=== PATIENT | female | born 1935 | race Caucasian/White ===

== ENCOUNTER 2017-09-18 12:04 | Inpatient (IN) | payer MEDICARE, OTHER ==
[~2017-09-18] VITALS: Ht 160 cm; Wt 75.7 kg
[2017-09-18 12:09] VITALS: BP 157/59
--- NOTE | 2017-09-18 12:24 | NUR ---
PT TRANSFERRED TO ER BED 4 VIA WHEELCHAIR ASSISTANCE.
--- NOTE | 2017-09-18 12:29 | NUR ---
PATIENT PRESENTS TO ED WITH 81/F PRESENT TO ER C/O DIZZINESS x TODAY @ 0700. HX: DM , RT MASTECTOMY AND HTN; DENIES N/V/D; SKIN IS PINK/WARM/DRY; AAOX4 WITH EVEN AND STEADY GAIT; LUNGS CLEAR BL; HR EVEN AND REGULAR; PT DENIES ANY FEVER, CP, SOB, OR COUGH AT THIS TIME; PATIENT STATES PAIN OF 0/10 AT THIS TIME; VSS; PATIENT POSITIONED FOR COMFORT; HOB ELEVATED; BEDRAILS UP X2; BED DOWN. ER MD MADE AWARE OF PT STATUS.
[2017-09-18] MEDS ORDERED: NACL 0.9% 1,000 ML IV ONE ×2 (12:35→14:25)
[2017-09-18 13:14] LABS: BASOPHILS % (AUTO) 0.4 % (0.0-2.0); EOSINOPHILS # (AUTO) 0.6 K/uL (0-0.4); HEMOGLOBIN 13.4 g/dL (12.0-16.0); LYMPHOCYTES # (AUTO) 1.2 K/uL (2.5-16.5); LYMPHOCYTES % (AUTO) 15.6 % (20.5-51.1); MEAN CORPUSCULAR HEMOGLOBIN 29 pg (27-31); MEAN CORPUSCULAR HGB CONC 33 g/dL (33-37); MEAN CORPUSCULAR VOLUME 90.3 fL (80-94); MONOCYTES # (AUTO) 0.6 K/uL (0.8-1.0); MONOCYTES % (AUTO) 7.8 % (1.7-9.3); NEUTROPHILS # (AUTO) 5.1 K/uL (1.8-7.7); NEUTROPHILS % (AUTO) 68.2 % (42.2-75.2); PLATELET COUNT (AUTO) 197 K/uL (140-450); RED BLOOD CELL COUNT(AUTO) 4.54 MIL/uL (4.20-5.40); RED CELL DISTRIBUTION WIDTH 13.2 % (11.6-13.7); WHITE BLOOD COUNT (AUTO) 7.5 K/uL (4.8-10.8)
[2017-09-18 13:43] LABS: ALBUMIN 3.2 g/dL (3.4-5.0); ANION GAP 9.3 (8-16); ASPARTATE AMINOTRANSFERASE 14 U/L (15-37); CARBON DIOXIDE 29.9 mmol/L (21-32); CHLORIDE 97 mmol/L (98-107); CREATININE 1.6 mg/dL (0.6-1.3); SODIUM SERUM 131 mmol/L (136-145); TOTAL BILIRUBIN 0.4 mg/dL (0.0-1.0); UREA NITROGEN, BLOOD 34 mg/dL (7-18)
[2017-09-18 13:55] LABS: GLUCOSE 473 mg/dL (74-106); POTASSIUM 5.2 mmol/L (3.5-5.1)
[2017-09-18 14:25] LABS: APPEARANCE,URINE CLEAR (CLEAR); BILIRUBIN,URINE NEGATIVE (NEGATIVE); BLOOD, URINE 1+ (NEGATIVE); LEUKOCYTE ESTERASE ,URINE NEGATIVE (NEGATIVE); NITRITE, URINE NEGATIVE (NEGATIVE); UGLUCOSE 3+ (NEGATIVE)
[2017-09-18] MEDS ORDERED: INSULIN REGULAR, HUMAN 100 UNIT/ML VIAL SUBQ ONE (14:25)
[2017-09-18 14:27] LABS: COLOR,URINE STRAW (YELLOW)
[2017-09-18 14:40] LABS: RBC,URINE 0-5 (RARE) /HPF (0-5); WBC,URINE NONE SEEN /HPF (0-5)
[2017-09-18] MEDS ORDERED: INSU100S22 SUBQ (14:51)
[2017-09-18] MEDS ORDERED: ARI1 PO (14:53)
[2017-09-18] MEDS ORDERED: ROSU5TAB PO (14:54)
[2017-09-18] MEDS ORDERED: LOSA25TA22 PO (14:58)
[2017-09-18] MEDS ORDERED: FORM1 IH (14:59)
--- NOTE | 2017-09-18 15:05 | NUR ---
Pt c/o head ache 10/23, Dr Kern notified
[2017-09-18] MEDS ORDERED: ACETAMINOPHEN 325 MG TAB PO ONE (15:15)
--- NOTE | 2017-09-18 15:20 | NUR ---
Pt placed on N/C at 2lpm d/t paO2 63, per
[2017-09-18] MEDS ORDERED: NACL 0.9% 1,000 ML IV SCH (15:44)
[2017-09-18] MEDS ORDERED: ONDANSETRON 4 MG/2 ML VIAL IVP PRN (15:45)
[2017-09-18] MEDS ORDERED: ACETAMINOPHEN 325 MG TAB PO PRN (15:45)
--- NOTE | 2017-09-18 16:11 | NUR ---
PT AWAITING AVAILABLE ROOM/RN FOR ADMISSION, PT/GRAND DAUGHTER MADE AWARE/UPDATED.
[2017-09-18 17:00] VITALS: BP 206/84
--- NOTE | 2017-09-18 17:00 | NUR ---
RECEIVED REPORT FROM ER NURSE AT BEDSIDE. PT DX UNCONTROLLED DM. CHIEF COMPLAIN IS DIZZINESS. DR DICKENS AT THE BEDSIDE. VS NOTES BP 206/84, O2 99% VIA NC @ 2LPM, RR 20, T-97.5, HR 75. NO SIGN OF DISTRESS. GRANDDAUGHTER AT THE BEDSIDE, PT BHUTANESE SPEAKING ONLY. GRANDDAUGHTER HELPED TO TRANSLATE TO PT. ADMINISTERED CLONIDINE TO PT. WILL REASSESS THE BP. ALL SAFETY MEASURE IN PLACE. CALL LIGHT WITHIN REACH. WILL CONTINUE TO MONITOR PT.
--- NOTE | 2017-09-18 17:05 | NUR ---
Patient will be admitted to care of Dr Coelho. Admited to tele room 105b. Belongings list completed. Report given to RUBENS Trammell.
--- NOTE | 2017-09-18 17:15 | NUR ---
DR DICKENS AT THE BEDSIDE TAKING HX FROM THE GRANDDAUGHTER. INFORMED THAT PHARMACY WANTED THE RATE FOR NORMAL SALINE FLUID. HE GAVE THE ORDER TO RUN @ 75 ML/HR. VERBALISED BACK TO DR DICKENS.
[2017-09-18] MEDS: cloNIDine 0.1 MG TAB PO PRN ×2 (17:46→20:30)
--- NOTE | 2017-09-18 18:00 | NUR ---
PT BP NOTED 169/48. CLONIDINE GIVEN EARLIER FOR BP 206/84. WILL CONTINUE TO MONITOR BP.
[2017-09-18] MEDS: IPRATROPIUM 0.02% 0.5 MG/2.5 ML NEBU INH SCH (19:00)
[2017-09-18] MEDS: ALBUTEROL 0.083% 2.5 MG/3 ML NEBU INH SCH (19:00)
--- NOTE | 2017-09-18 19:29 | NUR ---
ENDORSED PT TO PM NURSE. NO BP OR BLOOD WORK FROM PT RT HAND. NURSE NOTIFIED. FAMILY AT THE BEDSIDE. PT STABLE .
--- NOTE | 2017-09-18 19:30 | NUR ---
RECEIVED REPORT FROM [facility] NURSE AT BEDSIDE FOR CONTINUITY OF CARE. PT AAOX4 BANGLADESHI SPEAKING ONLY. RIGHT ARM RESTRICTION (NO BP OR BLOOD DRAW TO RIGHT ARM). HX: R MASTECTOMY. IV LAC 20G. SKIN INTACT NO SOB NO S/S OF DISTRESS NC O2 2L. BED LOWERED CALL LIGHT WITHIN REACH WILL CONTINUE TO MONITOR.
[2017-09-18 20:00] VITALS: BP 144/53
[2017-09-18] MEDS ORDERED: INSULIN LANTUS 100 UNITS/ML 10 ML VIAL SUBQ SCH (21:00)
--- NOTE | 2017-09-18 21:30 | NUR ---
GAVE PT LANTUS INSULIN BUT GOT ORDER CHANGED D/T BG 130. WILL CONTINUE TO MONITOR. ALSO STARTED IV FLUIDS.
[2017-09-18] MEDS: NACL 0.9% 1,000 ML IV SCH (21:48)
[2017-09-18] MEDS: BLOOD GLUCOSE MONITORING 1 DEV DEV FS SCH ×2 (21:48→21:51)
[2017-09-18] MEDS: INSULIN LANTUS 100 UNITS/ML 10 ML VIAL SUBQ SCH (21:51)
[2017-09-19] VITALS: BP 158/57
[2017-09-19] MEDS: ALBUTEROL 0.083% 2.5 MG/3 ML NEBU INH SCH ×2 (01:00→07:14)
[2017-09-19] MEDS: IPRATROPIUM 0.02% 0.5 MG/2.5 ML NEBU INH SCH ×4 (01:00→20:39)
--- NOTE | 2017-09-19 02:12 | NUR ---
PT SLEEPING. NO SOB, NO S/S OF DISTRESS WILL CONTINUE TO MONITOR.
[2017-09-19 04:00] VITALS: BP 197/79
[2017-09-19] MEDS: cloNIDine 0.1 MG TAB PO PRN (04:25)
--- NOTE | 2017-09-19 04:27 | NUR ---
GAVE CLONIDINE FOR HIGH BP 197/70 AND HR 67. WILL FOLLOW UP ON BP.
--- NOTE | 2017-09-19 05:30 | NUR ---
BLOOD GLUCOSE LOW 42. GAVE 50ML DEXTROSE IV PUSH. WILL REASSESS BS.
--- NOTE | 2017-09-19 05:55 | NUR ---
HYDRALAZINE REASSESS 138/48. HR 69
[2017-09-19] MEDS: DEXTROSE 50% 50 ML SYR IVP PRN (05:59)
--- NOTE | 2017-09-19 06:50 | NUR ---
BLOOD GLUCOSE AFTER 50ML DEXTROSE IS 133BG. WILL CONTINUE TO MONITOR.
[2017-09-19 07:13] LABS: BASOPHILS % (AUTO) 0.3 % (0.0-2.0); EOSINOPHILS # (AUTO) 0.5 K/uL (0-0.4); EOSINOPHILS % (AUTO) 6.8 % (0.0-4.0); HEMOGLOBIN 13.2 g/dL (12.0-16.0); LYMPHOCYTES % (AUTO) 24.8 % (20.5-51.1); MEAN CORPUSCULAR HEMOGLOBIN 30 pg (27-31); MEAN CORPUSCULAR HGB CONC 33 g/dL (33-37); MEAN CORPUSCULAR VOLUME 90.5 fL (80-94); MONOCYTES # (AUTO) 0.7 K/uL (0.8-1.0); MONOCYTES % (AUTO) 9.1 % (1.7-9.3); NEUTROPHILS # (AUTO) 4.7 K/uL (1.8-7.7); PLATELET COUNT (AUTO) 195 K/uL (140-450); RED BLOOD CELL COUNT(AUTO) 4.42 MIL/uL (4.20-5.40); RED CELL DISTRIBUTION WIDTH 13.2 % (11.6-13.7)
--- NOTE | 2017-09-19 07:30 | NUR ---
ENDORSED REPORT TO DAYSHIFT NURSE AT BEDSIDE FOR CONTINUITY OF CARE.
--- NOTE | 2017-09-19 07:37 | NUR ---
LAB CALLED REGARDING BLOOD GLUCOSE 37 TAKEN AT 0519 ON 09/19/17. CHARGE NURSE NOTIFIED AND PAGED DR. DICKENS.
[2017-09-19 07:38] LABS: ANION GAP 10.9 (8-16); ASPARTATE AMINOTRANSFERASE 19 U/L (15-37); CARBON DIOXIDE 28.2 mmol/L (21-32); CHLORIDE 108 mmol/L (98-107); CREATININE 1.4 mg/dL (0.6-1.3); MAGNESIUM 1.9 mg/dL (1.8-2.4); POTASSIUM 4.1 mmol/L (3.5-5.1); SODIUM SERUM 143 mmol/L (136-145); TOTAL BILIRUBIN 0.3 mg/dL (0.0-1.0); UREA NITROGEN, BLOOD 30 mg/dL (7-18)
[2017-09-19 07:39] LABS: GLUCOSE 36 mg/dL (74-106)
--- NOTE | 2017-09-19 07:40 | NUR ---
CHECKED BS OF PT. BS NOTED 116. CHARGE NURSE NOTIFIED, WAITING FOR CALL FROM DR DICKENS.
[2017-09-19] MEDS: BLOOD GLUCOSE MONITORING 1 DEV DEV FS SCH ×4 (07:42→21:00)
[2017-09-19 08:00] VITALS: BP 207/75
--- NOTE | 2017-09-19 08:28 | NUR ---
DR. CASILLAS CALLED BACK. UPDATED ON PT BS LEVEL . ORDERED TO HOLD LANTUS. PT BP 214/91, HR 74. DR NOTIFIED. OKAY TO MEDICATE WITH BP HYDRALIZINE. CLONIDINE GIVEN AT 0425.
[2017-09-19] MEDS: METOPROLOL 25 MG TAB PO SCH ×2 (08:44→20:36)
[2017-09-19] MEDS: hydrALAZINE 10 MG TAB PO SCH ×3 (08:44→17:28)
[2017-09-19] MEDS: ANASTROZOLE 1 MG TAB PO SCH (08:47)
[2017-09-19] MEDS: ENOXAPARIN 30 MG/0.3 ML SYR SUBQ SCH (08:47)
[2017-09-19] MEDS: INSULIN LANTUS 100 UNITS/ML 10 ML VIAL SUBQ SCH ×2 (09:00→21:00)
[2017-09-19] MEDS ORDERED: ENOXAPARIN 40 MG/0.4 ML SYR SUBQ SCH (09:00)
--- NOTE | 2017-09-19 09:00 | NUR ---
PT LANTUS PUT ON HOLD. BS 116 . LAB CALLED IN MORNING REGARDING CRITICAL LAB OF [address] DICKENS NOTIFIED AND HANSA TO HOLD LANTUS AT THIS TIME. WILL CONTINUE TO MONITOR PT.
--- NOTE | 2017-09-19 09:51 | NUR ---
PATIENT HAS BEEN SCREENED AND CATEGORIZED HIGH NUTRITION RISK. PATIENT WILL BE SEEN WITHIN 1-2 DAYS OF ADMISSION. 09/19/17-09/20/[address]
[2017-09-19] MEDS ORDERED: amLODIPine 5 MG TAB PO SCH (10:10)
[2017-09-19] MEDS: NACL 0.9% 1,000 ML IV SCH (10:15)
--- NOTE | 2017-09-19 10:26 | NUR ---
ADMINISTERED AMLODIPINE ORDERED TO PT. BP 20/97, HR 74. NO SIGN OF DISTRESS SEEN IN PT. STUDENT NURSE AT THE BEDSIDE, HELPS TO COMMUNICATE WITH PT. INSTRUCTED AND DEMONSTRATED TO USE CALL LIGHT FOR HELP. PT VERBALIZED UNDERSTANDING. BED AT LOWER POSITION, PT ON YELLOW GOWN, YELLOW WRIST BAND. BED ALARM ON. WILL CONTINUE TO MONITOR PT.
--- NOTE | 2017-09-19 10:45 | NUR ---
DAUGHTER AND GRAND DAUGHTER AT BEDSIDE. ASSISTING PT WITH HER CARE. DAUGHTER ASKED TO TAKE OFF NC FROM PT. LOWERED THE BED. PT TO USE RESTROOM.
[2017-09-19 12:00] VITALS: BP 143/52
[2017-09-19] MEDS: INSULIN LISPRO SLIDING SCALE 100 UNITS/ML VIAL SUBQ PRN ×2 (12:23→17:33)
--- NOTE | 2017-09-19 13:48 | NUR ---
ADMINISTERED HYDRALAZINE MEDS. BP 157/49, HR 67. PT DAUGHTER AT BEDSIDE. EXPLAINED THAT PT BP ELEVATES VERY HIGH, MEDS WILL HELP TO CONTROL THE BP IN NORMAL RANGE. STUDENT NURSE TRANSLATED THE COMMUNICATION. PT FAMILY VERBALIZED UNDERSTANDING. NO SIGN OF DISTRESS. WILL CONTINUE TO MONITOR PT.
--- NOTE | 2017-09-19 15:30 | NUR ---
09/19/17 RD INITIAL ASSESSMENT COMPLETED PLEASE REFER TO NUTRITION ASSESSMENT UNDER CARE ACTIVITY FOR ESTIMATED NUTRITIONAL NEEDS. RD RECOMMENDATIONS: 1. CONTINUE CCHO 60 GM DIET TOLERATED. 2. RD PROVIDED DM DIET EDUCATION HANDOUTS IN [place]. 3. RD WILL F/U 7 DAYS; LOW RISK. MARISSA ORR RD
[2017-09-19 16:30] VITALS: BP 144/63
--- NOTE | 2017-09-19 19:25 | NUR ---
ENDORSED PT TO PM NURSE. PT STABLE , MOM AT BEDSIDE. Addendum: 09/19/17 at 1939 by Jp Weaver RN DAUGHTER AT THE BEDSIDE.
--- NOTE | 2017-09-19 19:26 | NUR ---
RECEIVED REPORT FROM DAYSHIFT NURSE AT BEDSIDE FOR CONTINUITY OF CARE PT AAOX4 CZECH SPEAKING ONLY. IV NOTED LAC 20G IV NS 75ML. PT NEED ASSISTANCE GOING TO RESTROOM. GAIT IS WEAK. NO SOB NO S/S OF DISTRESS. WILL CONTINUE TO MONITOR.
[2017-09-19] MEDS: LOSARTAN 50 MG TAB PO SCH (20:35)
[2017-09-19] MEDS: ALBUTEROL 0.083% 2.5 MG/3 ML NEBU INH PRN (20:39)
[2017-09-19] MEDS ORDERED: LOSARTAN 50 MG TAB PO SCH (21:00)
--- NOTE | 2017-09-19 21:00 | NUR ---
BG 117. HELD LANTUS 22U. TO PREVENT HYPOGLYCEMIA. REASON (PREVIOUS NIGHT BG WAS 130'S GAVE 22U LANTUS AND BG AT AM 0530 WAS 42.)
[2017-09-19 22:37] VITALS: BP 161/50
[2017-09-20] VITALS: BP 141/83
[2017-09-20] MEDS: NACL 0.9% 1,000 ML IV SCH ×2 (00:33→10:30)
[2017-09-20] MEDS: IPRATROPIUM 0.02% 0.5 MG/2.5 ML NEBU INH SCH ×4 (01:00→19:00)
[2017-09-20 04:00] VITALS: BP 193/80
--- NOTE | 2017-09-20 04:30 | NUR ---
PT BP WAS ELEVATED TO 193/80. WILL GIVE PRN CATAPRES TO LOWER BP. REASSESS 1 HR AFTER ADMINISTRATION OF MEDICATION. WILL CONTINUE TO MONITOR.
--- NOTE | 2017-09-20 04:45 | NUR ---
BLOOD GLUCOSE CRITICALLY LOW AT 46. GAVE PT 50ML OF DEXTROSE. WILL REASSESS IN 1 HR. WILL CONTINUE TO MONITOR.
[2017-09-20] MEDS: DEXTROSE 50% 50 ML SYR IVP PRN (05:09)
[2017-09-20] MEDS: cloNIDine 0.1 MG TAB PO PRN (05:09)
--- NOTE | 2017-09-20 06:30 | NUR ---
PT BG IS NOW 119. WILL CONTINUE TO MONITOR.
--- NOTE | 2017-09-20 06:40 | NUR ---
BP NOW 149/61 HR 59. AFTER ADMIN CATAPRES. WILL CONTINUE TO MONITOR.
[2017-09-20] MEDS: BLOOD GLUCOSE MONITORING 1 DEV DEV FS SCH ×4 (06:41→21:11)
[2017-09-20 07:02] LABS: BASOPHILS % (AUTO) 0.3 % (0.0-2.0); EOSINOPHILS # (AUTO) 0.5 K/uL (0-0.4); EOSINOPHILS % (AUTO) 7.1 % (0.0-4.0); HEMATOCRIT 40.2 % (36-48); HEMOGLOBIN 13.1 g/dL (12.0-16.0); MEAN CORPUSCULAR HEMOGLOBIN 30 pg (27-31); MEAN CORPUSCULAR HGB CONC 33 g/dL (33-37); MEAN CORPUSCULAR VOLUME 90.7 fL (80-94); MONOCYTES # (AUTO) 0.6 K/uL (0.8-1.0); MONOCYTES % (AUTO) 7.8 % (1.7-9.3); NEUTROPHILS % (AUTO) 70.8 % (42.2-75.2); PLATELET COUNT (AUTO) 183 K/uL (140-450); RED BLOOD CELL COUNT(AUTO) 4.44 MIL/uL (4.20-5.40); RED CELL DISTRIBUTION WIDTH 13.1 % (11.6-13.7); WHITE BLOOD COUNT (AUTO) 7.1 K/uL (4.8-10.8)
[2017-09-20 07:10] LABS: ANION GAP 9.9 (8-16); CARBON DIOXIDE 27.1 mmol/L (21-32); CHLORIDE 108 mmol/L (98-107); CREATININE 1.4 mg/dL (0.6-1.3); GLUCOSE 142 mg/dL (74-106); SODIUM SERUM 141 mmol/L (136-145); UREA NITROGEN, BLOOD 27 mg/dL (7-18)
--- NOTE | 2017-09-20 07:31 | NUR ---
ENDORSED REPORT TO DAYSHIFT NURSE AT BEDSIDE FOR CONTINUITY OF CARE.
--- NOTE | 2017-09-20 07:35 | NUR ---
RECEIVED REPORT FROM DOG HAIR CLIPPER RN. PATIENT IS RESTING IN BED, AROUSABLE BY VOICE. DENIES PAIN AND DIZZINESS. HEART RHYTHM IS REGULAR. LUNGS CTA IN ALL [place]. BOWEL SOUNDS PRESENT IN ALL QUADRANTS. IV SITE PATENT AND ASYMPTOMATIC, RUNNING IVF PER MD ORDERS. SKIN IS INTACT. ALL SAFETY MEASURES ARE IN PLACE. WILL CONTINUE TO MONITOR PT. Addendum: 09/20/17 at 0815 by Jeanine Luis Meng RN RIGHT EXTREMITY RESTRICTED DUE TO RIGHT MASTECTOMY.
[2017-09-20 08:00] VITALS: BP 166/58
[2017-09-20] MEDS ORDERED: amLODIPine 5 MG TAB PO SCH ×2 (09:00→10:15)
[2017-09-20] MEDS: hydrALAZINE 10 MG TAB PO SCH ×3 (09:13→16:20)
[2017-09-20] MEDS: METOPROLOL 25 MG TAB PO SCH ×2 (09:13→21:08)
--- NOTE | 2017-09-20 09:13 | NUR ---
SCHEDULED MEDICATIONS GIVEN AT THIS TIME. DENIES PAIN AT THIS TIME. WILL CONTINUE TO MONITOR.
[2017-09-20] MEDS: ANASTROZOLE 1 MG TAB PO SCH (09:14)
[2017-09-20] MEDS: ENOXAPARIN 30 MG/0.3 ML SYR SUBQ SCH (09:39)
[2017-09-20 12:00] VITALS: BP 177/65
[2017-09-20] MEDS: INSULIN LISPRO SLIDING SCALE 100 UNITS/ML VIAL SUBQ PRN ×2 (12:14→16:29)
--- NOTE | 2017-09-20 12:14 | NUR ---
BLOOD SUGAR WAS 400. WILL ADMINISTER SLIDING SCALE HUMALOG PER MD ORDERS. WILL CONTINUE TO MONITOR PATIENT.
--- NOTE | 2017-09-20 13:29 | NUR ---
PT REFUSED HHN NO SOB
--- NOTE | 2017-09-20 15:01 | NUR ---
PATIENT RESTING IN BED, WITH FAMILY MEMBER AT BEDSIDE. NO COMPLAINTS OF PAIN, DIZZINESS, OR WEAKNESS. WILL CONTINUE TO MONITOR.
[2017-09-20 16:00] VITALS: BP 180/62
--- NOTE | 2017-09-20 17:20 | NUR ---
RE-CHECKED BLOOD PRESSURE AFTER ADMINISTERING SCHEDULED HYDRALAZINE: 157/64.
--- NOTE | 2017-09-20 19:28 | NUR ---
ENDORSED PLAN OF CARE TO CROWN IRONER RN. PATIENT IS IN STABLE CONDITION.
--- NOTE | 2017-09-20 19:29 | NUR ---
REPORT RECEIVED FROM AM SHIFT. PT IN STABLE CONDITION. AAOX4. INTRODUCED SELF TO PT AND BOARD UPDATED. FAMILY AT BEDSIDE. IV SITE INTACT AND PATENT. SKIN WARM, DRY, AND INTACT WITH NO OPEN WOUNDS. BED LOCKED IN LOW POSITION. CALL CHAPMAN WITHIN REACH.
--- NOTE | 2017-09-20 20:14 | NUR ---
FOUND PT SLEEPING WITH FAMILY AT BEDSIDE, FAMILY ASKED THAT SHE BE LEFT TO REST, PT RESTING COMFORTABLY, NO RESP DISTRESS OR SOB NOTED AT THIS TIME, WILL RESUME WITH NEXT SCHEDULED TX, WILL CONT TO MONITOR.
[2017-09-20] MEDS: LOSARTAN 50 MG TAB PO SCH (21:08)
[2017-09-20] MEDS: INSULIN LANTUS 100 UNITS/ML 10 ML VIAL SUBQ SCH (21:14)
--- NOTE | 2017-09-20 21:20 | NUR ---
PM MEDS GIVEN. PT TOLERATED WELL. BS IS GOOD RANGE AT 97. NO INSULIN COVERAGE NEEDED. LANTUS GIVEN FOR LONG LASTING EFFECT. SNACK ALSO GIVEN.
--- NOTE | 2017-09-20 23:05 | NUR ---
PT SITTING UP AT THE EDGE OF BED. PT STATES SHE IS FINE. WILL CONTINUE TO MONITOR.
[2017-09-21] VITALS: BP 165/62
--- NOTE | 2017-09-21 00:45 | NUR ---
PT SLEEPING COMFORTABLY. NO ACUTE DISTRESS NOTED. WILL CONTINUE TO MONITOR.
[2017-09-21] MEDS: NACL 0.9% 1,000 ML IV SCH (00:51)
[2017-09-21] MEDS: IPRATROPIUM 0.02% 0.5 MG/2.5 ML NEBU INH SCH ×2 (01:24→07:31)
[2017-09-21] MEDS: ALBUTEROL 0.083% 2.5 MG/3 ML NEBU INH PRN (01:24)
--- NOTE | 2017-09-21 03:49 | NUR ---
PT ASLEEP COMFORTABLY. WILL CONTINUE TO MONITOR.
--- NOTE | 2017-09-21 05:50 | NUR ---
BS TAKEN. BS 89. NO INSULIN COVERAGE NEEDED.
[2017-09-21] MEDS: BLOOD GLUCOSE MONITORING 1 DEV DEV FS SCH (06:13)
--- NOTE | 2017-09-21 07:05 | NUR ---
REPORT GIVEN TO AM NURSE AT BEDSIDE. PT IN STABLE CONDITION.
--- NOTE | 2017-09-21 07:06 | NUR ---
RECEIVED REPORT FROM DOUGHNUT ICER MACHINE RN. PATIENT IS AAOX4. HAS NO SIGNS AND SYMPTOMS OF ACUTE DISTRESS NOTED AT THIS TIME. HAS IV TO THE LEFT AC 20G, INFUSING NS AT 75ML/HR. SITE IS CLEAN, DRY, PATENT AND INTACT. PATIENT HAS WALKER NEARBY. DISCUSSED PLAN OF CARE WITH PATIENT AND SHE VERBALIZED UNDERSTANDING. BED IN LOWEST POSITION, SIDE RAILS UP X2, CALL LIGHT WITHIN REACH. WILL CONTINUE TO MONITOR.
[2017-09-21 07:17] LABS: BASOPHILS % (AUTO) 0.4 % (0.0-2.0); EOSINOPHILS % (AUTO) 15.1 % (0.0-4.0); HEMATOCRIT 36.6 % (36-48); HEMOGLOBIN 12.1 g/dL (12.0-16.0); LYMPHOCYTES % (AUTO) 30.5 % (20.5-51.1); MEAN CORPUSCULAR HEMOGLOBIN 30 pg (27-31); MEAN CORPUSCULAR HGB CONC 33 g/dL (33-37); MEAN CORPUSCULAR VOLUME 90.9 fL (80-94); MONOCYTES # (AUTO) 0.6 K/uL (0.8-1.0); MONOCYTES % (AUTO) 8.9 % (1.7-9.3); NEUTROPHILS % (AUTO) 45.1 % (42.2-75.2); PLATELET COUNT (AUTO) 171 K/uL (140-450); RED BLOOD CELL COUNT(AUTO) 4.03 MIL/uL (4.20-5.40); RED CELL DISTRIBUTION WIDTH 13.3 % (11.6-13.7); WHITE BLOOD COUNT (AUTO) 6.7 K/uL (4.8-10.8)
[2017-09-21 07:57] LABS: ANION GAP 7.9 (8-16); CARBON DIOXIDE 28.4 mmol/L (21-32); CHLORIDE 108 mmol/L (98-107); CREATININE 1.5 mg/dL (0.6-1.3); GLUCOSE 94 mg/dL (74-106); POTASSIUM 4.3 mmol/L (3.5-5.1); SODIUM SERUM 140 mmol/L (136-145); UREA NITROGEN, BLOOD 29 mg/dL (7-18)
[2017-09-21 08:00] VITALS: BP 149/86
[2017-09-21] MEDS ORDERED: amLODIPine 5 MG TAB PO SCH (09:00)
[2017-09-21] MEDS: METOPROLOL 25 MG TAB PO SCH (09:44)
[2017-09-21] MEDS: hydrALAZINE 10 MG TAB PO SCH (09:44)
[2017-09-21] MEDS: ANASTROZOLE 1 MG TAB PO SCH (09:44)
[2017-09-21] MEDS: INSULIN LANTUS 100 UNITS/ML 10 ML VIAL SUBQ SCH (09:44)
[2017-09-21] MEDS ORDERED: INSU100S22 SUBQ (09:45)
[2017-09-21] MEDS ORDERED: AMLO5TAB4 PO (09:45)
[2017-09-21] MEDS ORDERED: LOSA25TA22 PO (09:45)
[2017-09-21] MEDS ORDERED: METO25TA PO (09:45)
[2017-09-21] MEDS: ENOXAPARIN 30 MG/0.3 ML SYR SUBQ SCH (09:56)
--- NOTE | 2017-09-21 11:20 | NUR ---
DISCHARGE ORDER IS IN PLACE. GAVE PATIENT INSTRUCTIONS TO FOLLOW UP WITH PRIMARY CARE PHYSICIAN. ALSO INFORMED PATIENT THAT SHE HAS TWO PRESCRIPTIONS IN HER DISCHARGE PACKET. EDUCATED PATIENT ON WHEN TO SEEK EMERGENCY MEDICAL ATTENTION. PATIENT VERBALIZED UNDERSTANDING. REMOVED IV FROM SITE. CATHETER INTACT. SITE IS CLEAN AND DRY. ALL BELONGINGS ARE WITH PATIENT. SHE HAS HER OWN WALKER. ID BANDS REMOVED. WILL WALK OUT WITH PATIENT.
== END 2017-09-21 11:20 | disposition home or self-care (01) | DRG 469 ==
LOC: MED 12:04 → MTU 15:53
PROVIDERS: ADMIT Internal Medicine; ATTEND Internal Medicine
DX: N17.9 Acute kidney failure, unspecified (principal); J96.90 Respiratory failure, unspecified, unspecified whether with hypoxia or hypercapnia; E11.65 Type 2 diabetes mellitus with hyperglycemia; E44.1 Mild protein-calorie malnutrition; E86.0 Dehydration; E87.1 Hypo-osmolality and hyponatremia; N18.9 Chronic kidney disease, unspecified; E78.5 Hyperlipidemia, unspecified; Z85.3 Personal history of malignant neoplasm of breast; Z68.29 Body mass index [BMI] 29.0-29.9, adult; R51 Headache; I12.9 Hypertensive chronic kidney disease with stage 1 through stage 4 chronic kidney disease, or unspecified chronic kidney disease; E78.00 Pure hypercholesterolemia, unspecified; Z90.11 Acquired absence of right breast and nipple; Z98.41 Cataract extraction status, right eye; E16.2 Hypoglycemia, unspecified
CPT/HCPCS: 36415; 36600; 70450; 71045; 80048; 80053; 81001; 82803; 82948; 83036; 83605; 83735; 84484; 85025; 87040; 87081; 93005; 94640; 96360; 96361; 96372; 99285; J1650; J1815; J2405; J7030; J7613; J7644; Q0092